=== PATIENT | female | born 1995 | race African-American/Black ===

== ENCOUNTER → 2018-10-12 | Outpatient (CLI) | payer OTHER ==
--- NOTE | 2018-10-12 16:35 | RADIOLOGY REPORT (SQ) ---
EXAM DESCRIPTION: U/S NON-OB PELVIS TV W/O DOP COMPLETED DATE/TIME: 10/12/2018 4:21 pm REASON FOR STUDY: N92.6 IRREGULAR MENSTRUATION, UNSPECIFIED N92.6 IRREGULAR MENSTRUATION, UNSPECIFI ED COMPARISON: None. TECHNIQUE: Dynamic and static grayscale images acquired of the pelvis via transvaginal approach and recorded on PACS. Additional selected color Doppler and spectral images recorded. LIMITATIONS: None. FINDINGS: UTERUS: Contour normal. No mass. ENDOMETRIAL STRIPE: No focal or generalized thickening. No masses. CERVIX: 2.1 cm. No nabothian cysts. RIGHT OVARY AND DOPPLER: Normal size. No worrisome masses. Normal arterial vascular flow without evid ence for torsion. LEFT OVARY AND DOPPLER: Normal size. No worrisome masses. 2.3 x 1.8 x 1.9 cm cyst. Normal arterial vascular flow without evidence for torsion. FREE FLUID: None noted. OTHER: No other significant finding. MEASUREMENTS: UTERUS: 8.6 x 4.7 x 4 cm. ENDOMETRIAL STRIPE: 10 mm. RIGHT OVARY: 2.9 x 2.2 x 1.8 cm. LEFT OVARY: 3.4 x 2.6 x 2.7 cm. IMPRESSION: Small left ovarian cyst, almost certainly benign. No additional imaging is required for this. TECHNICAL DOCUMENTATION: JOB ID: [id number]- All Rights Reserved Rev-10/13 Reading location - IP/workstation name: [email or web address]
== END ==
LOC: RAD 15:50
PROVIDERS: ATTEND Nurse Practitioner Family
DX: N92.6 Irregular menstruation, unspecified (principal)
CPT/HCPCS: 76830